=== PATIENT | female | born 1985 | race Caucasian/White ===

== ENCOUNTER 2016-07-12 01:38 | Emergency (ER) | payer OTHER ==
[~2016-07-12] VITALS: Ht 152.4 cm; Wt 54.5 kg
[~2016-07-12 01:38] MED LIST: ACET325T33 PO; DOCU-144 PO; ONDA4TAB14 PO; POLY17PO6 PO
[2016-07-12 01:43] VITALS: Ht 152.4 cm; Wt 54.5 kg
--- NOTE | 2016-07-12 06:39 | ERD ---
ER Documentation Chief Complaint Date/Time DATE: 07/12/16 TIME: 06:33 Chief Complaint "inhale the chemical calvin'n to kill bed bugs at home" feels dizzy, nausea HPI This 31-year-old female presents to emergency department with her significant other. Patient is asleep on gurney, appears homeless, will not wake for more than 2 or 3 minutes, is barely understandable, words are slurred. Patient refuses to discuss symptoms. Poor historian. Patient's significant other does talking for her, reports recent exposure to chemical fumes. he reports they were staying at a friend's house who used a chemical bug balm to get rid of bedbugs. Patient states that his significant other has the same symptoms as he did which is nausea and a burning sensation in his chest with breathing. ROS All systems reviewed and are negative except as per history of present illness. Medications Home Meds Active Scripts Polyethylene Glycol* (Miralax*) 17 Gm Powd.pack, 17 GM PO DAILY, #7 Prov:MAINE TIAN PA-C 03/09/16 Docusate Sodium* (Colace*) 100 Mg Capsule, 100 MG PO TID, #30 CAP Prov:MAINE TIAN PA-C 03/09/16 Acetaminophen* (Tylenol*) 325 Mg Tablet, 2 TAB PO Q6 Y for PAIN AND OR ELEVATED TEMP, #20 TAB Prov:MAINE TIAN PA-C 03/09/16 Ondansetron (Ondansetron Odt) 4 Mg Tab.rapdis, 4 MG PO Q6H Y for NAUSEA AND/OR VOMITING, #10 TAB Prov:MAINE TIAN PA-C 03/09/16 Allergies Allergies: Coded Allergies: No Known Allergy (Verified , 06/02/15) PMhx/Soc History of Surgery: Yes (Cesarrian X 3, skin graphs) Anesthesia Reaction: No Hx Neurological Disorder: No Hx Respiratory Disorders: No Hx Cardiac Disorders: No Hx Psychiatric Problems: No Hx Miscellaneous Medical Probl: Yes (anxiety) Hx Alcohol Use: No Hx Substance Use: No Hx Tobacco Use: Yes (meth 3 days ago) Smoking Status: Current every day smoker Physical Exam Vitals Vital Signs Date Time Temp Pulse Resp B/P Pulse Ox O2 Delivery O2 Flow Rate FiO2 07/12/16 01:43 98.2 88 20 115/73 99 Vitals stable, triage notes reviewed Physical Exam Const: No acute distress Head: Eyes: ENT: . Neck: Resp: Chest rises and falls with inhalation, no rales wheezes or rhonchi Cardio: Abd: Skin: Multiple tattoos, no rash or ulcer or wound Back: Ext: No cyanosis, or edema Neur: Patient is sleeping. Difficult to arouse. Words slurred Psych: Normal Mood and Affect Procedures/MDM 31-year-old female presents to the emergency department for evaluation after chemical exposure. Patient slept in a room that was recently treated for bedbugs. Patient appears homeless in room with significant other refusing to wake more than 1 or 2 seconds for exam. I feel patient is appropriate for discharge, return to emergency room for any change in symptoms. I feel the patient is stable for discharge at this time. I have discussed results, examination findings, the treatment plan with the patient and family present prior to discharge. Indications for emergent reevaluation, side effects of medication were also discussed. All questions were answered. Patient verbalizes understanding and agrees with plan of care. Departure Condition: Good Patient Instructions: Chemical Inhalation Referrals: [facility] Additional Instructions: Thank you for for coming to [facility] for your care today. Please ask your nurse or provider if you have questions about your care today and do not leave until all your questions have been answered. Please use any medications given as directed and follow-up with your doctor (or the doctor you were referred to) in the next 2-3 days. If you do not have a primary care doctor you may follow up at the [facility] (listed below). You may also use motrin and tylenol as needed for fever and/or pain unless instructed otherwise by your provider or nurse. Indications for more urgent follow-up have been discussed, but you may return to the Emergency Department at ANY time for any worrisome or worsening symptoms. If you have abdominal pain, please know that no test or exam you received is perfect and you should follow up within 8 hours for continued pain. If you had any imaging studies today, such as an X-Ray or CT Scan, these studies will be reviewed later by a radiologist. You will be called if there are important findings that were not identified today, so make sure the contact information you provided at registration is correct. If you received any narcotic pain control medicine today, such as Vicodin, Morphine or Dilaudid, your coordination and judgment may be affected for a number of hours. Please do not drive or operate heavy machinery, and you may want someone to assist you at home. If you were given a prescription for narcotic medication, be aware that it is very addictive- use sparingly and only if necessary. SHIRA HERNANDEZ Jul 12, 2016 06:39
[2016-07-12 07:03] VITALS: BP 118/65; PULSE 78; RESP 20; TEMP 98.6
== END 2016-07-12 07:04 | disposition home or self-care (01) ==
LOC: FTE 01:38
DX: R42 Dizziness and giddiness (principal); F17.210 Nicotine dependence, cigarettes, uncomplicated; R11.0 Nausea; Z77.098 Contact with and (suspected) exposure to other hazardous, chiefly nonmedicinal, chemicals
CPT/HCPCS: 99282